=== PATIENT | female | born 1970 | race Caucasian/White ===

== ENCOUNTER → 2021-10-29 | Outpatient (CLI) | payer MEDICAID, SELFPAY ==
--- NOTE | 2021-10-29 | ASPIG_PTH ---
PATIENT: HUMAIRA MUÑOZ LOC: [facility] U#:[id number] AGE/SX: 51/F ROOM: RE10/29/[address]: Dr. Leonid King MD : 1970 BED: DIS: 10/29/2021 SPEC #: [id number] RECD: 10/29/21 16:19 STATUS: MARNIE NGOC #: [id number] NIKITA: 10/29/21 00:[address]: Leonid King DEPT: CYTOLOGY RECD BY: Noemi Russo ENTERED: 11/01/21 08:23 SP TYPE: ASP OUT OTHR DR: Dr. Deny Geiger MD Tissues: A - Thyroid gland, NOS B - Thyroid gland, NOS Procedures: FNA Specimen Adequacy Special Stain Group II Surgery Specimen Level IV Cytology Other HEADER OPERATION: Fine needle aspiration, thyroid PRE-OP DIAGNOSIS: Abnormal thyroid ultrasound TISSUE SUBMITTED: A - Right lower pole thyroid nodule fluid, B - Right lower pole thyroid nodule x6 slides DIAGNOSIS CYTOLOGY A. Right lower pole thyroid nodule fluid, fine needle aspiration (cytospin and cell block): Acellular specimen. B. Right lower pole thyroid nodule, fine needle aspiration (smears): Negative for malignant cells. See comment. MUNIRA:kallie 11/02/2021 COMMENT B. Smears also show marked drying artifacts. A few clusters of benign follicular cells are noted. The specimen is limited in evaluation due to lack of adequate number of follicular cells and drying artifacts. Correlation with clinical, radiologic findings and appropriate follow up are necessary. Case has been reviewed in consultation with Dr. Elena who concurs with the above diagnosis. IDC:AM CYTOLOGY STUDY Slides are reviewed. CYTOLOGY GROSS A. Received is 25 ml of clear colorless fluid labeled with the patient's name and and designated per the requisition as right lower pole thyroid. Submitted for cytology preparation including cell block. B. Received are six smears labeled with the patient's name and designated per the requisition as right lower pole thyroid. Submitted for staining. / kallie 11/01/2021 TC:5 CPT: 53959 x2, 87431
== END | disposition home or self-care (01) ==
LOC: LABSPEC 16:28
PROVIDERS: PCP Family Medicine; Referring Provider Surgery; Visit Provider Surgery
DX: R94.6 Abnormal results of thyroid function studies (principal)
CPT/HCPCS: 88161; 88172; 88305; 88313